=== PATIENT | female | born 1940 | race Caucasian/White ===

== ENCOUNTER 2017-02-03 11:50 | Outpatient (RCR) | payer MEDICARE, BC ==
[2016-10-03 08:17] VITALS: Ht 160 cm; Wt 106.6 kg
[~2017-02-03] VITALS: Ht 160 cm; Wt 106.6 kg
[~2017-02-03 11:50] MED LIST: ALBU8.5H IH; AMOX1TAB9 PO; APIX5TAB PO; ASPI81TA86 PO; ATEN-1 PO; ATOR-1 PO; ATOR20TA22 PO; ATOR40TA69 PO; BLOO-1318 MC; FELO5TAB34 PO; FLUT1DIS28 IH; INSU100I10 SC; INSU100I28 SQ; INSU100I30 SQ; LANI SUBQ; LATA2.5D7 OP; METF-410 PO; METF-420 PO; OLME40TA28 PO; OXYGENHOME INH; PIOG30TA3 PO; SULF-198 PO; TIMO1DRO8 OP; [UNRECOGNIZED DRUG - CODE] PO
--- NOTE | 2017-02-06 16:23 | Medical Nutrition Therapy ---
Nutrition Anthropometrics Height (Inches): 63.00 Weight (Pounds): 235 (stated wt) BMI Calculated: 41.62 Jose F Nutrition Score: Jose F Nutrition Risk Score: Dietary Referral Nutrition Risk Factors: Nutrition Risk Comment: Physical Findings Physical Appearance: Morbidly Obese 40+ Skin Appearance Skin Appearance: Edema Edema Location Modifier: Edema Location: Type of Edema: Degree of Edema: Gastrointestinal Symptoms GI Symtoms: Tube Present: Bowel Sounds: Recent Bowel Pattern: Stool Characteristics: Nutrition/Food History Breakfast: scrab egg, 1 sl toast , buttwer Lunch: sand chips, unswt tea Dinner: meat, rice or potatoes, peas, veg, SF applesauce Snacks: fruit Nutritional Education Nutrition Counseling: late entry for 02/03 : Pt states has receved diabetic education in the past. Reviewed gycemic response to CHO. Pt eats fruit between meals. enphasised that fruit is a high CHO food. Discussed CHO counting and plate method. Pt'd daugher does cooking and pt states daughter has gastic bypass so eats very little CHO. Recommend pt follow similar diet and limit CHO ot 30gm or 1c/meal. Encouraged wt loss to help with BG control. PCP ordered diabetic classes and CGM. Pt refused CGM at this time. Refused classes but will consider the Living with Diabetes class if it could be worked into her schedule. Nutrition Monitoring & Eval RD Patient Assessment Time: 60 minutes Nutritional Comment: Provided 60 minutes MNT for diabetes Copies To Copies to: SIRISHA PETER PA-C, BETH Feb 06, 2017 16:16
== END 2017-03-10 ==
LOC: DIET 11:50
PROVIDERS: ATTEND Physician Assistant
DX: Z71.3 Dietary counseling and surveillance (principal); E11.42 Type 2 diabetes mellitus with diabetic polyneuropathy; Z68.41 Body mass index [BMI] 40.0-44.9, adult; Z79.4 Long term (current) use of insulin
CPT/HCPCS: 97802

== ENCOUNTER 2017-03-13 13:19 | Outpatient (RCR) | payer MEDICARE, BC ==
[2016-10-03 08:17] VITALS: BMI 41.6
[~2017-03-13 13:19] MED LIST changes: +GLYB1TAB47 PO; -[UNRECOGNIZED DRUG - CODE] PO
--- NOTE | 2017-03-13 15:11 | Medical Nutrition Therapy ---
Nutrition Anthropometrics Height (Inches): 63.00 Weight (Pounds): 235 BMI Calculated: 41.62 Jose F Nutrition Score: Jose F Nutrition Risk Score: Dietary Referral Nutrition Risk Factors: Nutrition Risk Comment: Physical Findings Physical Appearance: Morbidly Obese 40+ Skin Appearance Skin Appearance: Edema Edema Location Modifier: Edema Location: Type of Edema: Degree of Edema: Gastrointestinal Symptoms GI Symtoms: Tube Present: Bowel Sounds: Recent Bowel Pattern: Stool Characteristics: Nutritional Education Nutrition Education Topic: Other Learning Barriers: Hx Of Non-Compliance Learning Readiness: Interested Teaching Methods: Discussion, Handout Response to Teaching: Verbalize understanding Teaching Recipient: Patient Nutrition Monitoring & Eval RD Patient Assessment Time: [address] Assessment Type: RD Education Nutritional Comment: Provided 60 minutes MNT for diabetes 03/13/17 Pt diagnosed with T2DM 20 years ago with recent A1c of 10.2%. Pt lives with daughter and her family. Pt instructed on Living with Diabetes topics including foot care, senior care complications, exercise, hypoglycemia, sick day care, etc. Pt appears interested in diabetes topics and able to answer questions regarding topics covered. I personally spent a total of 90 minutes educating/counseling patient regarding diabetes self-management in a group setting. See education section and my note above for details. Copies To Copies to: SIRISHA PETER PA-C, DIANNE Mar 13, 2017 15:11
== END 2017-04-17 ==
LOC: DIET 13:19
PROVIDERS: ATTEND Physician Assistant
DX: E11.42 Type 2 diabetes mellitus with diabetic polyneuropathy (principal); Z79.4 Long term (current) use of insulin; Z68.41 Body mass index [BMI] 40.0-44.9, adult
CPT/HCPCS: G0109

== ENCOUNTER → 2017-07-25 | Outpatient (CLI) | payer MEDICARE, BC ==
[2016-10-03 08:17] VITALS: BMI 41.6
[~2017-07-25] MED LIST changes: -METF-410 PO; +METF-411 PO; -METF-420 PO; +METF-421 PO
--- NOTE | 2017-07-25 13:33 | RADIOLOGY IMAGING REPORT ---
FACILITY: [facility] PATIENT NAME: Kristel Mclean : 1940 MR: [id number] V: [id number] EXAM DATE: ORDERING PHYSICIAN: SIRISHA PETER TECHNOLOGIST: Location: [facility] Patient: Kristel Mclean : 1940 Visit/Account:[id number] Date of Sevice: 07/25/2017 FINGER LEFT 3RD DIGIT COMPARISONS: None. ADDITIONAL PERTINENT HISTORY: Open wound FINDINGS: Osseous structures: . Negative, specifically no evidence of underlying fracture or osteolytic proces s. Joint spaces: Negative. Surrounding soft tissues: Negative. IMPRESSION: 1. No acute appearing bony abnormalities involving the visualized left toes. Report Dictated By: Mono Spangler MD at 07/25/2017 1:28 PM Report E-Signed By: Mono Spangler MD at 07/25/2017 1:29 PM WSN:[id number]
== END ==
LOC: RAD 10:58
PROVIDERS: ATTEND Physician Assistant
DX: S91.104D Unspecified open wound of right lesser toe(s) without damage to nail, subsequent encounter (principal)

== ENCOUNTER 2017-08-22 10:30 | Outpatient (RCR) | payer MEDICARE, BC ==
[2016-10-03 08:17] VITALS: BMI 41.6
--- NOTE | 2017-07-29 09:17 | PT INITIAL EVALUATION ---
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 The patient reports that she was seen by her DPM in January and given a metatarsal pad to improve toe alignment. Pt reports that she has been followed by her PCP since that time with weekly dressing changes from the RN. She was referred for PT wound care d/t delayed healing and increased depth of wound. She was started on Levofloxacin for a 7 day course. 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 Pt presents with neuropathic ulcer of the distal 3rd toe on the L) foot. There is large amounts of periwound callous with a small wound opening. PT completed conservative, selective debridement of non-viable tissue and periwound callous with tweezers and scissors to the depth of the subcutaneous tissue. Post debridement, the wound base was revealed with good healthy granulation tissue present. PT cleansed the area with sterile saline and then placed collagen with silver in the wound base, followed by a bordered gauze dressing. PT replaced the metatarsal pad and donned compression stockings and diabetic shoes. The patient will benefit from skilled PT wound care to include skilled sharps debridement as well as advanced wound care product selection and application to facilitate wound healing. Short Term Goals 1: Wound to demonstrate 100% granulation tissue with no s/s of infection 2: Wound to gradually epithelialize from the edges inward and demonstrate full closure 3: Pt to maintain clean, dry and intact dressing in between wound care sessions Patient's Goals: Wound healing PLAN: Patient to be seen for advanced PT wound care to include skilled sharps debridement as well as advanced wound care product selection and application 1- 2x/week for up to 90 days. Thank you for this referral. If you have any questions, comments, or concerns about this report or plan, please contact me at . April Vallejo, PT, DPT MTDD
--- NOTE | 2017-08-22 11:38 | PT PLAN OF CARE ---
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 GOALS: (all goals met) 1: Wound to demonstrate 100% granulation tissue with no s/s of infection 2: Wound to gradually epithelialize from the edges inward and demonstrate full closure 3: Pt to maintain clean, dry and intact dressing in between wound care sessions PATIENT'S GOAL: Wound Healing Status of Patient's Goals: Met Patient Compliance: Excellent Prognosis: Good Reasons for continuing therapy: None at this time. Wound demonstrates full closure with 100% epithelization of previous opening. The patient was encouraged to continue to treat the toe with vaseline to facilitate softening of the calloused tissue. Thank you for this referral. If you have any questions, comments, or concerns about this report or plan, please contact me at . April Vallejo, PT, DPT [facility]
== END 2017-08-22 18:00 | disposition home or self-care (01) ==
LOC: PT 10:30
PROVIDERS: ATTEND Physician Assistant
DX: E11.621 Type 2 diabetes mellitus with foot ulcer (principal); L97.521 Non-pressure chronic ulcer of other part of left foot limited to breakdown of skin; E11.42 Type 2 diabetes mellitus with diabetic polyneuropathy
CPT/HCPCS: 97161

== ENCOUNTER 2017-09-28 10:38 | Emergency (ER) | payer MEDICARE, BC ==
[2016-10-03 08:17] VITALS: Wt 79.8 kg
[~2017-09-28 10:38] MED LIST changes: -PIOG30TA3 PO; +PIOG30TA71 PO
--- NOTE | 2017-09-28 10:40 | ER Report ---
History and Physical Time Seen By MD: 10:40 HPI/ROS CHIEF COMPLAINT: Rash to foot HISTORY OF PRESENT ILLNESS: Patient is a 77-year-old female who presents to the emergency department with complaint of wound to the bottom of the left 3rd toe which has been chronic. She states that she developed a pressure sore in January 2017 she was followed for many weeks in the wound clinic 3 weeks ago was apparently her last visit and she told that she had healed. However she noticed breakdown of the skin again and now has red streaking going up the left lateral aspect of the lower extremity. She says that the area is warm to the touch and tender. She also reports subjective fevers at home. Patient is unclear of her last tetanus shot. She denies any chest pain or shortness of breath. She denies any abdominal pain. REVIEW OF SYSTEMS: Respiratory: No cough, no dyspnea. Cardiovascular: No chest pain, no palpitations. Gastrointestinal: No vomiting, no abdominal pain. Musculoskeletal: No back pain. Skin: Red rash to the lateral aspect of the left lower extremity Allergies: Coded Allergies: peanut (Verified Allergy, Severe, 09/28/17) throat closes fluconazole (Verified Allergy, Intermediate, 09/28/17) hives, burning, itching latex (Verified Allergy, Intermediate, 09/28/17) blisters cephalexin (Verified Allergy, Mild, 09/28/17) nausea lactose (Verified Adverse Reaction, Intermediate, GI DISTRESS, 09/28/17) Home Meds Active Scripts Olmesartan Medoxomil (BENICAR) 40 Mg Tablet, 1 TAB PO DAILY, #90 TAB 1 Refill Prov:BETY PIÑA MD 04/26/15 Oxygen (OXYGEN) Inha, 2 L INH QDAY, #2 L Prov:BETY PIÑA MD 04/24/15 Albuterol Sulfate 90 Mcg/Act (PROAIR HFA 90 MCG/ACT) 8.5 Gm Hfa.aer.ad, 2 PUFF IH Q4-6H, #9 INHALER 3 Refills Prov:BETY IPÑA MD 01/03/15 Felodipine (FELODIPINE ER) 5 Mg Tab.er.24h, 1 TAB PO DAILY, #90 TAB 3 Refills Prov:BETY PIÑA MD 11/09/14 Atenolol (ATENOLOL) 50 Mg Tablet, 1 TAB PO DAILY, #90 TAB 3 Refills Prov:BETY PIÑA MD 11/09/14 Reported Medications Levofloxacin 500 Mg Tab (LEVOFLOXACIN 500 MG TAB) 500 Mg Tablet, 500 MG PO QDAY , TAB 09/28/17 Metformin HCl (Metformin HCl ER) 1,000 Mg Inpccsf35h, BID 09/28/17 Atorvastatin Calcium (ATORVASTATIN CALCIUM) 80 Mg Tablet, 0.5 TAB PO QHS, TAB 10/03/16 Apixaban (ELIQUIS) 5 Mg Tablet, 5 MG PO BID 10/03/16 Insulin Lispro 100 Un/Ml Pen (HUMALOG 3 ML PEN) 100 Unit/1 Ml Insuln.pen, 15 UNIT SQ TIDAC, DIS.SYR 10/03/16 Insulin Glargine,Hum.rec.anlog (Basaglar Kwikpen U-100) 100 Unit/Ml (3 Ml) Insuln.pen, 42 SC QHS 10/03/16 Aspirin (ASPIRIN EC) 81 Mg Tablet.dr, 81 MG PO QDAY, TAB 10/02/16 Discontinued Scripts Amoxicillin/Potassium Clav (AMOX TR-K CLV 875-125 MG TAB) 1 Each Tablet, 875 MG PO BIDBS, #20 TAB 0 Refills Prov:DANYELLE HERNANDEZ MD 10/06/16 Past Medical/Surgical History Past medical history for insulin-dependent diabetes, history of asthma, history of mild stroke in the past. History of osteomyelitis into the right foot history of hypertension Hx Smoking: No Smoking Status: Never Smoker Exposure to Second Hand Smoke?: Yes Constitutional Vital Sign - Last 24 Hours 09/28/17 09/28/17 09/28/17 09/28/17 10:44 10:44 10:47 11:08 Temp 98.3 Pulse 71 67 Resp 20 B/P (MAP) 180/73 180/73 (108) Pulse Ox 96 96 O2 Delivery Nasal Cannula O2 Flow Rate 2.0 09/28/17 09/28/17 09/28/17 11:30 11:38 12:08 Pulse 67 64 Resp 19 12 B/P (MAP) 162/81 (108) Pulse Ox 96 96 Intake and Output 09/28/17 09/28/17 09/29/17 15:00 23:00 07:00 Intake Total 50 ml Balance 50 ml Physical Exam General Appearance: The patient is alert, has no immediate need for airway protection and no current signs of toxicity. Eyes: Pupils equal and round no injection. Respiratory: Chest is non tender, lungs are clear to auscultation. Cardiac: regular rate and rhythm Gastrointestinal: Abdomen is soft and non tender, no masses, bowel sounds normal. Musculoskeletal: Neck: Neck is supple and non tender. Extremities have full range of motion and are non tender. Skin: Evaluation of the left lower extremity reveals a small area of skin breakdown to the pad of the 3rd phalanx of the left foot there does not appear to be any purulent discharge and the skin breakdown appears to be only a grade 2 pressure sore. Patient does have erythema that is extending up the lateral aspect of the left lower extremity. It is warm to the touch and somewhat tender. Patient has intact dorsalis pedis pulses and posterior tibialis pulses to both lower extremities. [ ] Medical Decision Making Data Points Result Diagram: 09/28/17 1141 09/28/17 1141 Laboratory Hematology Test 09/28/17 11:41 Red Blood Count 4.71 M/uL (4.17-5.56) Mean Corpuscular Volume 89.1 fL (80.0-96.0) Mean Corpuscular Hemoglobin 30.4 pg (26.0-33.0) Mean Corpuscular Hemoglobin Concent 34.1 g/dL (32.0-36.0) Red Cell Distribution Width 13.9 % (11.5-14.5) Mean Platelet Volume 8.8 fL (7.2-11.1) Neutrophils (%) (Auto) 61.6 % (39.4-72.5) Lymphocytes (%) (Auto) 23.6 % (17.6-49.6) Monocytes (%) (Auto) 10.3 % (4.1-12.4) Eosinophils (%) (Auto) 3.3 % (0.4-6.7) Basophils (%) (Auto) 1.2 % (0.3-1.4) Nucleated RBC Relative Count (auto) 0.1 /100WBC Neutrophils # (Auto) 5.4 K/uL (2.0-7.4) Lymphocytes # (Auto) 2.1 K/uL (1.3-3.6) Monocytes # (Auto) 0.9 K/uL (0.3-1.0) Eosinophils # (Auto) 0.3 K/uL (0.0-0.5) Basophils # (Auto) 0.1 K/uL (0.0-0.1) Nucleated RBC Absolute Count (auto) 0.01 K/uL Erythrocyte Sedimentation Rate 31 mm/HOUR (0-30) Sodium Level 139 mmol/L (137-145) Potassium Level 5.2 mmol/L (3.5-5.0) Chloride Level 102 mmol/L (98-107) Carbon Dioxide Level 26 mmol/L (22-31) Blood Urea Nitrogen 23 mg/dl (7-18) Creatinine 0.90 mg/dl (0.52-1.04) Glomerular Filtration Rate Calc > 60.0 Random Glucose 141 mg/dl (75-110) Calcium Level 9.3 mg/dl (8.4-10.2) Total Bilirubin 0.5 mg/dl (0.2-1.3) Aspartate Amino Transf (AST/SGOT) 62 U/L (0-35) Alanine Aminotransferase (ALT/SGPT) 66 U/L (0-56) Alkaline Phosphatase 92 U/L (0-126) C-Reactive Protein 0.6 mg/dl (<1.0) Total Protein 7.7 g/dl (6.3-8.2) Albumin 4.2 g/dl (3.5-5.0) Chemistry Test 09/28/17 11:41 White Blood Count 8.8 k/uL (4.5-11.0) Red Blood Count 4.71 M/uL (4.17-5.56) Hemoglobin 14.3 g/dL (12.0-16.0) Hematocrit 41.9 % (34.0-47.0) Mean Corpuscular Volume 89.1 fL (80.0-96.0) Mean Corpuscular Hemoglobin 30.4 pg (26.0-33.0) Mean Corpuscular Hemoglobin Concent 34.1 g/dL (32.0-36.0) Red Cell Distribution Width 13.9 % (11.5-14.5) Platelet Count 262 K/uL (150-450) Mean Platelet Volume 8.8 fL (7.2-11.1) Neutrophils (%) (Auto) 61.6 % (39.4-72.5) Lymphocytes (%) (Auto) 23.6 % (17.6-49.6) Monocytes (%) (Auto) 10.3 % (4.1-12.4) Eosinophils (%) (Auto) 3.3 % (0.4-6.7) Basophils (%) (Auto) 1.2 % (0.3-1.4) Nucleated RBC Relative Count (auto) 0.1 /100WBC Neutrophils # (Auto) 5.4 K/uL (2.0-7.4) Lymphocytes # (Auto) 2.1 K/uL (1.3-3.6) Monocytes # (Auto) 0.9 K/uL (0.3-1.0) Eosinophils # (Auto) 0.3 K/uL (0.0-0.5) Basophils # (Auto) 0.1 K/uL (0.0-0.1) Nucleated RBC Absolute Count (auto) 0.01 K/uL Erythrocyte Sedimentation Rate 31 mm/HOUR (0-30) Glomerular Filtration Rate Calc > 60.0 Calcium Level 9.3 mg/dl (8.4-10.2) Total Bilirubin 0.5 mg/dl (0.2-1.3) Aspartate Amino Transf (AST/SGOT) 62 U/L (0-35) Alanine Aminotransferase (ALT/SGPT) 66 U/L (0-56) Alkaline Phosphatase 92 U/L (0-126) C-Reactive Protein 0.6 mg/dl (<1.0) Total Protein 7.7 g/dl (6.3-8.2) Albumin 4.2 g/dl (3.5-5.0) EKG/Imaging Imaging ED foot x-ray no obvious fractures or osteomyelitis noted. This is a wet read by myself it appears that the system which transmits x-rays to [facility] is not functioning. ED Course/Re-evaluation Clinical Indication for ER IV: IV Access ED Course 09/28/2017 11:15:38 am plan at this time will be to draw blood work for CBC comprehensive metabolic panel, blood cultures 2. We will obtain an x-ray of the left foot, update the patient's tetanus status and we will give a dose of IV clindamycin. Re-evaluation 09/28/2017 1:18:16 pm patient improved blood work appears unremarkable. Plan will be discharge home and I will have patient discontinue her current antibiotics and start her on oral clindamycin. She does have follow-up with [facility] tomorrow and will be encouraged to keep that appointment. Decision to Disposition Date: Sep 28, 2017 Decision to Disposition Time: 13:20 Depart Departure Latest Vital Signs Vital Signs Date Time Temp Pulse Resp B/P (MAP) Pulse Ox O2 Delivery O2 Flow Rate FiO2 09/28/17 12:08 64 12 96 09/28/17 11:30 162/81 (108) 09/28/17 10:44 2.0 09/28/17 10:44 98.3 Nasal Cannula Impression: Primary Impression: Cellulitis Condition: Improved Disposition: HOME OR SELF-CARE Referrals: SIRISHA PETER PA-C (PCP) New Scripts Clindamycin Hcl (CLINDAMYCIN HCL) 300 Mg Capsule 300 MG PO Q6H, #40 CAPSULE 0 Refills Prov: VU MCCLURE MD 09/28/17 Patient Instructions: Cellulitis (ED) Additional Instructions: Discontinue your current antibiotic and begin taking clindamycin as directed until course is complete. Be sure to follow up at [facility] tomorrow for evaluation of your foot wound. Problem Qualifiers Primary Impression: Cellulitis Site of cellulitis: extremity Site of cellulitis of extremity: lower extremity Laterality: left Qualified Codes: L03.116 - Cellulitis of left lower limb VU MCCLURE MD Sep 28, 2017 10:40
[2017-09-28] MEDS ORDERED: METF-54 (10:59)
[2017-09-28] MEDS ORDERED: LEVO500T83 PO (10:59)
[2017-09-28] MEDS ORDERED: DIPHTH/TETANUS/ACEL. PERTUSSIS IM ONLY ONE (11:20)
[2017-09-28] MEDS ORDERED: CLINDAMYCIN(*) 600 MG/NS 50 ML 50 ML IVPB ONE (11:20)
[2017-09-28 11:52] LABS: PLATELET COUNT, AUTOMATED 262 K/uL (150-450)
[2017-09-28 13:00] VITALS: BP 141/88
[2017-09-28] MEDS ORDERED: CLIN300C99 PO (13:20)
--- NOTE | 2017-09-28 15:18 | RADIOLOGY IMAGING REPORT ---
FACILITY: [facility] PATIENT NAME: Kristel Mclean : 1940 MR: [id number] V: [id number] EXAM DATE: ORDERING PHYSICIAN: VU MCCLURE TECHNOLOGIST: Location: [facility] - [place] Patient: Kristel Mclean : 1940 Visit/Account:[id number] Date of Sevice: 09/28/2017 INDICATION: r/o osteo. DATE: 09/28/2017 3:13 PM. TECHNIQUE: FOOT 3 VIEW LEFT COMPARISON: None FINDINGS: Marked hallux valgus with lateralization of the sesamoids. Diffusely decreased bone density . No conspicuous bony erosion. Old posttraumatic deformity of the fifth metatarsal. Mild midfoot dege nerative findings. Small plantar calcaneal heel spur. IMPRESSION: Chronic findings as above but no conspicuous erosion. Report Dictated By: Peña Wilburn MD at 09/28/2017 3:13 PM Report E-Signed By: Peña Wilburn MD at 09/28/2017 3:15 PM WSN:[id number]
== END 2017-09-28 13:29 | disposition home or self-care (01) ==
LOC: ER 10:47
DX: L03.116 Cellulitis of left lower limb (principal)
CPT/HCPCS: 36415; 85025; 85651; 86140; 87040; 90471; 90715; 96365; 99283; J3490; 82040; 82247; 82310; 82374; 82435; 82565; 82947; 84075; 84132; 84155; 84295; 84450; 84460; 84520

== ENCOUNTER → 2017-10-07 | Outpatient (CLI) | payer MEDICARE, BC ==
[2016-10-03 08:17] VITALS: BMI 41.6
[~2017-10-07] MED LIST changes: +CLIN300C99 PO; +LEVO500T83 PO; +METF-54
--- NOTE | 2017-10-07 17:17 | RADIOLOGY IMAGING REPORT ---
FACILITY: [facility] PATIENT NAME: Kristel Mclean : 1940 MR: [id number] V: [id number] EXAM DATE: ORDERING PHYSICIAN: CHUN DIAZ TECHNOLOGIST: [place] [facility] [place] Kristel Mclean : 1940 Visit/Account:[id number] Date of Sevice: 10/07/2017 CAROTID HISTORY: Coronary artery disease history of TIA COMPARISON: July 12, 2016 FINDINGS: Grayscale, duplex and color Doppler interrogation of the extracranial carotid and vertebral arteries was performed bilateral. On the right, peak systolic velocities within the common and internal carotid arteries are 193 and 72 cm/sec respectively. A small to moderate amount of plaque is identified in the distal right common carotid artery and a mild amount of plaque in the right carotid bulb. Antegrade flow within the comm on, internal and external carotid arteries as well as vertebral artery. ICA/CCA ratio 0.8. On the left, peak systolic velocities within the common and internal carotid arteries are 124 and 172 cm/sec respectively. Extensive amount of plaque is seen in the distal left common carotid artery ex tending into the carotid bulb and the proximal and mid left ICA. Antegrade flow within the common, i nternal and external carotid arteries as well as vertebral artery. ICA/CCA ratio 1.4. IMPRESSION: Small to moderate amount of plaque is identified in the distal right common carotid artery and a mild amount of plaque right carotid bulb although no hemodynamically significant lesions identified in th e right ICA by velocity criteria Extensive plaque is seen in the distal left common carotid artery extending into the left carotid bul b and proximal and mid left ICA. Elevated peak systolic velocity in the left ICA of one 72 cm/s and is consistent with a 50-69% category stenosis. Velocities slightly increased when compared the prior study at which time it measured 166 cm/s Velocity criteria are extrapolated from diameter data as defined by the Society of Radiologists in Ul trasound Consensus Conference Radiology 2003; 229;340-346 Report Dictated By: Marilyn Mayorga MD at 10/07/2017 5:10 PM Report E-Signed By: Marilyn Mayorga MD at 10/07/2017 5:14 PM WSN:[email or web address]
== END ==
LOC: US 02:00
PROVIDERS: ATTEND Internal Medicine Cardiovascular Disease
DX: I65.23 Occlusion and stenosis of bilateral carotid arteries (principal)
CPT/HCPCS: 93880

== ENCOUNTER → 2018-01-09 | Outpatient (CLI) | payer MEDICARE, BC ==
[2016-10-03 08:17] VITALS: BMI 41.6
[~2018-01-09] MED LIST changes: -METF-411 PO; -METF-421 PO; +METF-450 PO; +METF-452 PO
--- NOTE | 2018-01-09 12:53 | RADIOLOGY IMAGING REPORT ---
FACILITY: [facility] PATIENT NAME: GEORGINA LESLIE : [id number] MR: [id number] V: [id number] EXAM DATE: ORDERING PHYSICIAN: SIRISHA PETER TECHNOLOGIST: Elizabeth Moscoso PROCEDURE:BILATERAL DIGITAL SCREENING MAMMOGRAM WITH CAD ASSISTED INTERPRETATION & 3D TOMOSYNTHESIS COMPARISON:Prior mammograms 10/25/16. INDICATIONS:SCREENING FINDINGS: Breast parenchyma is predominantly fatty. There are no mammographic findings concerning for malignancy. No significant interval change. DIAGNOSTIC CATEGORY 1--NEGATIVE. RECOMMENDATIONS: ROUTINE MAMMOGRAM AND CLINICAL EVALUATION IN 1 YR. IMPRESSION: BIRADS 1: Negative. Dictated by: Arden Ashton on 01/09/2018 at 11:17 Transcribed by: KHARI on 01/09/2018 at 11:21 Approved by: Arden Ashton on 01/09/2018 at 12:52 [facility]
== END ==
LOC: RAD 01:11
PROVIDERS: ATTEND Physician Assistant
DX: Z12.31 Encounter for screening mammogram for malignant neoplasm of breast (principal)
CPT/HCPCS: 77063; 77067

== ENCOUNTER 2018-04-29 09:24 | Emergency (ER) | payer MEDICARE, BC ==
[2016-10-03 08:17] VITALS: Wt 79.8 kg
[2018-04-29 09:56] LABS: PLATELET COUNT, AUTOMATED 300 K/uL (150-450)
--- NOTE | 2018-04-29 09:58 | EKG ---
FACILITY: [facility] - [place] PATIENT NAME: GEORGINA LESLIE : [id number] MR: [id number] V: [id number] EXAM DATE: ORDERING PHYSICIAN: KATHYA IRAHTEA TECHNOLOGIST: Test Reason : Blood Pressure : / mmHG Vent. Rate : 067 BPM Atrial Rate : 067 BPM P-R Int : 212 ms QRS Dur : 082 ms QT Int : 404 ms P-R-T Axes : 046 021 066 degrees QTc Int : 426 ms Sinus rhythm with 1st degree AV block Otherwise normal ECG When compared with ECG of 02-OCT-2016 19:45, R wave progression has normalized, otherwise unchanged Confirmed by SAMIRA URRUTIA ([id number]) on 04/29/2018 4:36:47 PM Referred By: Confirmed By:SAMIRA URRUTIA
--- NOTE | 2018-04-29 10:01 | ER Report ---
History and Physical Time Seen By MD: 09:30 Hx. of Stated Complaint: RIGHT SIDED FACIAL NUMBNESS SINCE 829 TODAY HPI/ROS CHIEF COMPLAINT: Facial numbness HISTORY OF PRESENT ILLNESS: 77-year-old female male history of carotid artery stenosis and a prior TIA comes in with facial numbness happened about 45 minutes prior to presentation on arrival she is completely asymptomatic subsequent resolution complete and full of her symptoms patient is a long history of chronic right arm numbness S status post fall this is musculoskeletal in etiology. Patient has had carotid artery stenosis and diagnosed and had a procedure done. Patient states she's had this episode a couple times in the past has been formally diagnosed a TIA. On arrival to the emergency department again she is completely neurologically intact completely symptomatic resolution of all of her symptoms. Patient denies chest pain shortness of breath nausea vomiting diarrhea fever chills or additional complaints noted REVIEW OF SYSTEMS: Respiratory: No cough, no dyspnea. Cardiovascular: No chest pain, no palpitations. Gastrointestinal: No vomiting, no abdominal pain. Musculoskeletal: No back pain. Remainder of the 14 system rev: Yes Allergies: Coded Allergies: peanut (Verified Allergy, Severe, 09/28/17) throat closes fluconazole (Verified Allergy, Intermediate, 09/28/17) hives, burning, itching latex (Verified Allergy, Intermediate, 09/28/17) blisters cephalexin (Verified Allergy, Mild, 09/28/17) nausea lactose (Verified Adverse Reaction, Intermediate, GI DISTRESS, 09/28/17) Home Meds Active Scripts Clindamycin Hcl (CLINDAMYCIN HCL) 300 Mg Capsule, 300 MG PO Q6H, #40 CAPSULE 0 Refills Prov:VU MCCLURE MD 09/28/17 Olmesartan Medoxomil (BENICAR) 40 Mg Tablet, 1 TAB PO DAILY, #90 TAB 1 Refill Prov:BETY PIÑA MD 04/26/15 Oxygen (OXYGEN) Inha, 2 L INH QDAY, #2 L Prov:BETY PIÑA MD 04/24/15 Felodipine (FELODIPINE ER) 5 Mg Tab.er.24h, 1 TAB PO DAILY, #90 TAB 3 Refills Prov:BETY PIÑA MD 11/09/14 Atenolol (ATENOLOL) 50 Mg Tablet, 1 TAB PO DAILY, #90 TAB 3 Refills Prov:BETY PIÑA MD 11/09/14 Reported Medications Metformin HCl (Metformin HCl ER) 1,000 Mg [id number], BID 09/28/17 Atorvastatin Calcium (ATORVASTATIN CALCIUM) 80 Mg Tablet, 0.5 TAB PO QHS, TAB 10/03/16 Apixaban (ELIQUIS) 5 Mg Tablet, 5 MG PO BID 10/03/16 Insulin Lispro 100 Un/Ml Pen (HUMALOG 3 ML PEN) 100 Unit/1 Ml Insuln.pen, 15 UNIT SQ TIDAC, DIS.SYR 10/03/16 Insulin Glargine,Hum.rec.anlog (Basaglar Kwikpen U-100) 100 Unit/Ml (3 Ml) Insuln.pen, 42 SC QHS 10/03/16 Aspirin (ASPIRIN EC) 81 Mg Tablet.dr, 81 MG PO QDAY, TAB 10/02/16 Discontinued Reported Medications Levofloxacin 500 Mg Tab (LEVOFLOXACIN 500 MG TAB) 500 Mg Tablet, 500 MG PO QDAY, TAB 09/28/17 Discontinued Scripts Albuterol Sulfate 90 Mcg/Act (PROAIR HFA 90 MCG/ACT) 8.5 Gm Hfa.aer.ad, 2 PUFF IH Q4-6H, #9 INHALER 3 Refills Prov:BETY PIÑA MD 01/03/15 Reviewed Nurses Notes: Yes Old Medical Records Reviewed: Yes Hx Smoking: No Smoking Status: Never Smoker Exposure to Second Hand Smoke?: Yes Hx Substance Use Disorder: No Hx Alcohol Use: No Constitutional Vital Sign - Last 24 Hours 04/29/18 04/29/18 09:35 09:35 Temp 98.4 Pulse 75 Resp 20 B/P (MAP) 143/76 Pulse Ox 96 O2 Delivery Room Air O2 Flow Rate 2.0 Physical Exam General Appearance: The patient is alert, has no immediate need for airway protection and no current signs of toxicity. [ ] Eyes: Pupils equal and round no injection. Respiratory: Chest is non tender, lungs are clear to auscultation. Cardiac: regular rate and rhythm [ ] Gastrointestinal: Abdomen is soft and non tender, no masses, bowel sounds normal. Musculoskeletal: Neck: Neck is supple and non tender. Extremities have full range of motion and are non tender. Skin: No rashes or lesions. Neurological examination patient GCS of 15 cranial nerves II through XII intact without any deficits no obvious deficits noted neurovascularly intact and NIH scale negative DIFFERENTIAL DIAGNOSIS: After history and physical exam differential diagnosis was considered for TIA versus stroke versus intracranial bleed Medical Decision Making Data Points Result Diagram: 04/29/1849 04/29/18 0949 Laboratory Hematology Test 04/29/18 09:48 04/29/18 09:49 Whole Blood Glucose 138 mg/DL (75-110) Red Blood Count 5.01 M/uL (4.17-5.56) Mean Corpuscular Volume 90.6 fL (80.0-96.0) Mean Corpuscular Hemoglobin 29.6 pg (26.0-33.0) Mean Corpuscular Hemoglobin Concent 32.7 g/dL (32.0-36.0) Red Cell Distribution Width 14.1 % (11.5-14.5) Mean Platelet Volume 8.3 fL (7.2-11.1) Neutrophils (%) (Auto) 56.7 % (39.4-72.5) Lymphocytes (%) (Auto) 28.4 % (17.6-49.6) Monocytes (%) (Auto) 10.2 % (4.1-12.4) Eosinophils (%) (Auto) 4.5 % (0.4-6.7) Basophils (%) (Auto) 0.2 % (0.3-1.4) Nucleated RBC Relative Count (auto) 0.0 /100WBC Neutrophils # (Auto) 5.9 K/uL (2.0-7.4) Lymphocytes # (Auto) 2.9 K/uL (1.3-3.6) Monocytes # (Auto) 1.1 K/uL (0.3-1.0) Eosinophils # (Auto) 0.5 K/uL (0.0-0.5) Basophils # (Auto) 0.0 K/uL (0.0-0.1) Nucleated RBC Absolute Count (auto) 0.00 K/uL Prothrombin Time 13.9 seconds (12.0-14.4) Prothromb Time International Ratio 1.07 Activated Partial Thromboplast Time 35 seconds (23-35) Sodium Level 139 mmol/L (137-145) Potassium Level 4.4 mmol/L (3.5-5.0) Chloride Level 103 mmol/L (98-107) Carbon Dioxide Level 28 mmol/L (22-31) Blood Urea Nitrogen 19 mg/dl (7-18) Creatinine 0.80 mg/dl (0.52-1.04) Glomerular Filtration Rate Calc > 60.0 Random Glucose 130 mg/dl (75-110) Calcium Level 9.1 mg/dl (8.4-10.2) Total Bilirubin 0.6 mg/dl (0.2-1.3) Aspartate Amino Transf (AST/SGOT) 32 U/L (0-35) Alanine Aminotransferase (ALT/SGPT) 41 U/L (0-56) Alkaline Phosphatase 98 U/L (0-126) Troponin I < 0.012 ng/ml Total Protein 7.4 g/dl (6.3-8.2) Albumin 4.2 g/dl (3.5-5.0) Chemistry Test 04/29/18 09:48 04/29/18 09:49 Whole Blood Glucose 138 mg/DL (75-110) White Blood Count 10.4 k/uL (4.5-11.0) Red Blood Count 5.01 M/uL (4.17-5.56) Hemoglobin 14.8 g/dL (12.0-16.0) Hematocrit 45.4 % (34.0-47.0) Mean Corpuscular Volume 90.6 fL (80.0-96.0) Mean Corpuscular Hemoglobin 29.6 pg (26.0-33.0) Mean Corpuscular Hemoglobin Concent 32.7 g/dL (32.0-36.0) Red Cell Distribution Width 14.1 % (11.5-14.5) Platelet Count 300 K/uL (150-450) Mean Platelet Volume 8.3 fL (7.2-11.1) Neutrophils (%) (Auto) 56.7 % (39.4-72.5) Lymphocytes (%) (Auto) 28.4 % (17.6-49.6) Monocytes (%) (Auto) 10.2 % (4.1-12.4) Eosinophils (%) (Auto) 4.5 % (0.4-6.7) Basophils (%) (Auto) 0.2 % (0.3-1.4) Nucleated RBC Relative Count (auto) 0.0 /100WBC Neutrophils # (Auto) 5.9 K/uL (2.0-7.4) Lymphocytes # (Auto) 2.9 K/uL (1.3-3.6) Monocytes # (Auto) 1.1 K/uL (0.3-1.0) Eosinophils # (Auto) 0.5 K/uL (0.0-0.5) Basophils # (Auto) 0.0 K/uL (0.0-0.1) Nucleated RBC Absolute Count (auto) 0.00 K/uL Prothrombin Time 13.9 seconds (12.0-14.4) Prothromb Time International Ratio 1.07 Activated Partial Thromboplast Time 35 seconds (23-35) Glomerular Filtration Rate Calc > 60.0 Calcium Level 9.1 mg/dl (8.4-10.2) Total Bilirubin 0.6 mg/dl (0.2-1.3) Aspartate Amino Transf (AST/SGOT) 32 U/L (0-35) Alanine Aminotransferase (ALT/SGPT) 41 U/L (0-56) Alkaline Phosphatase 98 U/L (0-126) Troponin I < 0.012 ng/ml Total Protein 7.4 g/dl (6.3-8.2) Albumin 4.2 g/dl (3.5-5.0) Coagulation Test 04/29/18 09:49 Prothrombin Time 13.9 seconds Prothromb Time International Ratio 1.07 Activated Partial Thromboplast Time 35 seconds ED Course/Re-evaluation ED Course Equal course in 7-year-old female facial numbness which had subsequently completely resolved in less than 30 minutes and on arrival was completely asymptomatic no neurological deficits noted CT scan cardiac and stroke workup all negative she is asymptomatic diagnosis T8 primary care follow-up T Medications Decision to Disposition Date: Apr 29, 2018 Decision to Disposition Time: 11:05 Depart Departure Latest Vital Signs Vital Signs Date Time Temp Pulse Resp B/P (MAP) Pulse Ox O2 Delivery O2 Flow Rate FiO2 04/29/18 09:35 98.4 75 20 143/76 96 Room Air 04/29/18 09:35 2.0 Impression: Primary Impression: TIA (transient ischemic attack) Condition: Improved Disposition: HOME OR SELF-CARE Referrals: RY NUNEZ MD 5 Days Patient Instructions: Transient Ischemic Attack (DC) KATHYA IRAHETA MD Apr 29, 2018 10:00
[2018-04-29 10:05] LABS: INR 1.07
--- NOTE | 2018-04-29 10:23 | RADIOLOGY IMAGING REPORT ---
FACILITY: [facility] PATIENT NAME: Kristel Mclean : 1940 MR: [id number] V: [id number] EXAM DATE: ORDERING PHYSICIAN: KATHYA IRAHETA TECHNOLOGIST: Location: [facility] Patient: Kristel Mclean : 1940 Visit/Account:[id number] Date of Sevice: 04/29/2018 Study: Single portable view of the chest. Indication: Numbness Comparison study: October 02, 2016 Technique: Single AP view of the chest demonstrates no evidence of acute infiltrate. There is no evid ence of pleural effusion or pneumothorax. The mediastinal, cardiac, and diaphragmatic contours are un remarkable. IMPRESSION: Unremarkable chest. Report Dictated By: Josep Friedman at 04/29/2018 10:18 AM Report E-Signed By: Josep Friedman at 04/29/2018 10:19 AM [id number]
--- NOTE | 2018-04-29 10:46 | RADIOLOGY IMAGING REPORT ---
[place] [facility] [place]: Kristel Mclean : 1940 MR: [id number] V: [id number] EXAM DATE: ORDERING PHYSICIAN: KATHYA IRAHETA [place]CHN[place] [facility] [place]el [place] : 1940 Visit/Account:[id number] Date of Sevice: 04/29/2018 Study: CT scan of the brain without intravenous contrast. Indication: Dysesthesias Comparison study: July 12, 2016 Technique: Multiple axial images were obtained through the brain without the use of intravenous contr ast. One of the following dose optimization techniques was utilized in the performance of this exam: Autom ated exposure control; adjustment of the mA and/or kV according to the patient's size; or use of an i terative reconstruction technique. Specific details can be referenced in the facility's radiology C T exam operational policy. The examination demonstrates no evidence of acute intracranial hemorrhage. There is no evidence of ex tra-axial collection or hydrocephalus. There are patchy areas of low density within the periventricular white matter. This is consistent wi th chronic ischemia. There are areas of fluid density involving the anterior right centrum semiovale and the head of the right caudate nucleus. These are consistent with areas of chronic infarct. The se are unchanged as compared to the previous study. There is no evidence of disruption of the peripheral saenz-white junction. The bony structures are unremarkable. IMPRESSION: Chronic ischemic white matter changes. 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 There is no evidence of acute intracranial abnormality. Report Dictated By: Josep Friedman at 04/29/2018 10:36 AM Report E-Signed By: Josep Friedman at 04/29/2018 10:40 AM [id number]
[2018-04-29 11:00] VITALS: BP 99/71
== END 2018-04-29 11:17 | disposition home or self-care (01) ==
LOC: ER 09:39
DX: G45.9 Transient cerebral ischemic attack, unspecified (principal); I44.0 Atrioventricular block, first degree
CPT/HCPCS: 36416; 70450; 71045; 82040; 82247; 82310; 82374; 82435; 82565; 82947; 82948; 84075; 84132; 84155; 84295; 84450; 84460; 84484; 84520; 85025; 85610; 85730; 93005; 99284

== ENCOUNTER 2018-05-03 08:38 | Emergency (ER) | payer MEDICARE, BC ==
[2016-10-03 08:17] VITALS: Wt 99.3 kg
--- NOTE | 2018-05-03 08:41 | ER Report ---
History and Physical Time Seen By MD: 08:41 HPI/ROS CHIEF COMPLAINT: Right-sided facial numbness HISTORY OF PRESENT ILLNESS: Patient is a 77-year-old female here with complaints of right-sided facial numbness which she woke up with at approximately 7:00 this morning. Patient does have history significant for CVA and TIA. Patient was diagnosed with a TIA on April 29. Patient denies motor weakness at this time. Patient is hemodynamically stable in no acute distress. Patient is currently being treated with Elaquis. Patient denies fevers, chills, recent illness. REVIEW OF SYSTEMS: Constitutional: No fever, no chills. Eyes: No discharge. ENT: No sore throat. Cardiovascular: No chest pain, no palpitations. Respiratory: No cough, no shortness of breath. Gastrointestinal: No abdominal pain, no vomiting. Genitourinary: No hematuria. Musculoskeletal: No back pain. Skin: No rashes. Neurological: Right-sided facial numbness Allergies: Coded Allergies: peanut (Verified Allergy, Severe, 09/28/17) throat closes fluconazole (Verified Allergy, Intermediate, 09/28/17) hives, burning, itching latex (Verified Allergy, Intermediate, 09/28/17) blisters cephalexin (Verified Allergy, Mild, 09/28/17) nausea lactose (Verified Adverse Reaction, Intermediate, GI DISTRESS, 09/28/17) Home Meds Active Scripts Clindamycin Hcl (CLINDAMYCIN HCL) 300 Mg Capsule, 300 MG PO Q6H, #40 CAPSULE 0 Refills Prov:VU MCCLURE MD 09/28/17 Olmesartan Medoxomil (BENICAR) 40 Mg Tablet, 1 TAB PO DAILY, #90 TAB 1 Refill Prov:BETY PIÑA MD 04/26/15 Oxygen (OXYGEN) Inha, 2 L INH QDAY, #2 L Prov:BETY PIÑA MD 04/24/15 Felodipine (FELODIPINE ER) 5 Mg Tab.er.24h, 1 TAB PO DAILY, #90 TAB 3 Refills Prov:BETY PIÑA MD 11/09/14 Atenolol (ATENOLOL) 50 Mg Tablet, 1 TAB PO DAILY, #90 TAB 3 Refills Prov:BETY PIÑA MD 11/09/14 Reported Medications Metformin HCl (Metformin HCl ER) 1,000 Mg Mgymhet05b, BID 09/28/17 Atorvastatin Calcium (ATORVASTATIN CALCIUM) 80 Mg Tablet, 0.5 TAB PO QHS, TAB 10/03/16 Apixaban (ELIQUIS) 5 Mg Tablet, 5 MG PO BID 10/03/16 Insulin Lispro 100 Un/Ml Pen (HUMALOG 3 ML PEN) 100 Unit/1 Ml Insuln.pen, 15 UNIT SQ TIDAC, DIS.SYR 10/03/16 Insulin Glargine,Hum.rec.anlog (Basaglar Kwikpen U-100) 100 Unit/Ml (3 Ml) Insuln.pen, 42 SC QHS 10/03/16 Aspirin (ASPIRIN EC) 81 Mg Tablet.dr, 81 MG PO QDAY, TAB 10/02/16 Discontinued Reported Medications Levofloxacin 500 Mg Tab (LEVOFLOXACIN 500 MG TAB) 500 Mg Tablet, 500 MG PO QDAY, TAB 09/28/17 Discontinued Scripts Albuterol Sulfate 90 Mcg/Act (PROAIR HFA 90 MCG/ACT) 8.5 Gm Hfa.aer.ad, 2 PUFF IH Q4-6H, #9 INHALER 3 Refills Prov:BETY PIÑA MD 01/03/15 Hx Smoking: No Smoking Status: Never Smoker Exposure to Second Hand Smoke?: Yes Hx Substance Use Disorder: No Hx Alcohol Use: No Constitutional Vital Sign - Last 24 Hours 05/03/18 05/03/18 05/03/18 05/03/18 08:41 08:55 10:18 13:22 Temp 98.5 Pulse 66 85 Resp 16 16 16 B/P (MAP) 155/95 (115) 136/85 (102) Pulse Ox 92 95 92 O2 Delivery Nasal Cannula Nasal Cannula Nasal Cannula O2 Flow Rate 2.0 2 2 Physical Exam General Appearance: The patient is alert, has no immediate need for airway protection and no signs of toxicity. No acute distress Eyes: Pupils equal and round no pallor or injection. ENT, Mouth: Mucous membranes are moist. Respiratory: There are no retractions, lungs are clear to auscultation. Cardiovascular: Regular rate and rhythm. Gastrointestinal: Abdomen is soft and non tender, no masses, bowel sounds normal. Neurological: No focal neurological findings on examination, no weakness, no facial droop Skin: Warm and dry, no rashes. Musculoskeletal: Neck is supple non tender. Extremities are nontender, nonswollen and have full range of motion. DIFFERENTIAL DIAGNOSIS: After history and physical exam differential diagnosis was considered for CVA, TIA, electrolyte abnormality, infectious etiology, anxiety Medical Decision Making Data Points Result Diagram: 05/03/18 1028 05/03/18 1028 Laboratory Hematology Test 05/03/18 10:28 05/03/18 10:40 05/03/18 12:35 Red Blood Count 5.08 M/uL (4.17-5.56) Mean Corpuscular Volume 91.1 fL (80.0-96.0) Mean Corpuscular Hemoglobin 30.0 pg (26.0-33.0) Mean Corpuscular Hemoglobin Concent 32.9 g/dL (32.0-36.0) Red Cell Distribution Width 13.7 % (11.5-14.5) Mean Platelet Volume 8.4 fL (7.2-11.1) Neutrophils (%) (Auto) 67.7 % (39.4-72.5) Lymphocytes (%) (Auto) 19.9 % (17.6-49.6) Monocytes (%) (Auto) 9.7 % (4.1-12.4) Eosinophils (%) (Auto) 1.9 % (0.4-6.7) Basophils (%) (Auto) 0.8 % (0.3-1.4) Nucleated RBC Relative Count (auto) 0.0 /100WBC Neutrophils # (Auto) 6.4 K/uL (2.0-7.4) Lymphocytes # (Auto) 1.9 K/uL (1.3-3.6) Monocytes # (Auto) 0.9 K/uL (0.3-1.0) Eosinophils # (Auto) 0.2 K/uL (0.0-0.5) Basophils # (Auto) 0.1 K/uL (0.0-0.1) Nucleated RBC Absolute Count (auto) 0.00 K/uL Prothrombin Time 13.4 seconds (12.0-14.4) Prothromb Time International Ratio 1.02 Activated Partial Thromboplast Time 34 seconds (23-35) Sodium Level 139 mmol/L (137-145) Potassium Level 4.9 mmol/L (3.5-5.0) Chloride Level 104 mmol/L (98-107) Carbon Dioxide Level 27 mmol/L (22-31) Blood Urea Nitrogen 18 mg/dl (7-18) Creatinine 0.70 mg/dl (0.52-1.04) Glomerular Filtration Rate Calc > 60.0 Random Glucose 104 mg/dl (75-110) Calcium Level 9.4 mg/dl (8.4-10.2) Total Bilirubin 0.7 mg/dl (0.2-1.3) Aspartate Amino Transf (AST/SGOT) 33 U/L (0-35) Alanine Aminotransferase (ALT/SGPT) 37 U/L (0-56) Alkaline Phosphatase 102 U/L (0-126) Total Protein 7.6 g/dl (6.3-8.2) Albumin 4.3 g/dl (3.5-5.0) Urine Color Straw Urine Clarity Clear Urine pH 6.0 pH (4.8-9.5) Urine Specific [place] 1.005 Urine Protein Negative mg/dL (NEGATIVE) Urine Glucose (UA) Negative mg/dL (NEGATIVE) Urine Ketones Negative mg/dL (NEGATIVE) Urine Blood Negative (NEGATIVE) Urine Nitrite Negative (NEGATIVE) Urine Bilirubin Negative (NEGATIVE) Urine Urobilinogen Negative mg/dL (0.2-1.9) Urine Leukocyte Esterase Negative (NEGATIVE) Urine RBC <1 /HPF (0-2/HPF) Urine WBC None /HPF (0-5/HPF) Urine Squamous Epithelial Cells Many /LPF (</=FEW) Urine Bacteria Negative /HPF (NONE-FEW) Urine Mucus None /HPF (NONE-FEW) Troponin I < 0.012 ng/ml Chemistry Test 05/03/18 10:28 05/03/18 10:40 05/03/18 12:35 White Blood Count 9.4 k/uL (4.5-11.0) Red Blood Count 5.08 M/uL (4.17-5.56) Hemoglobin 15.2 g/dL (12.0-16.0) Hematocrit 46.3 % (34.0-47.0) Mean Corpuscular Volume 91.1 fL (80.0-96.0) Mean Corpuscular Hemoglobin 30.0 pg (26.0-33.0) Mean Corpuscular Hemoglobin Concent 32.9 g/dL (32.0-36.0) Red Cell Distribution Width 13.7 % (11.5-14.5) Platelet Count 282 K/uL (150-450) Mean Platelet Volume 8.4 fL (7.2-11.1) Neutrophils (%) (Auto) 67.7 % (39.4-72.5) Lymphocytes (%) (Auto) 19.9 % (17.6-49.6) Monocytes (%) (Auto) 9.7 % (4.1-12.4) Eosinophils (%) (Auto) 1.9 % (0.4-6.7) Basophils (%) (Auto) 0.8 % (0.3-1.4) Nucleated RBC Relative Count (auto) 0.0 /100WBC Neutrophils # (Auto) 6.4 K/uL (2.0-7.4) Lymphocytes # (Auto) 1.9 K/uL (1.3-3.6) Monocytes # (Auto) 0.9 K/uL (0.3-1.0) Eosinophils # (Auto) 0.2 K/uL (0.0-0.5) Basophils # (Auto) 0.1 K/uL (0.0-0.1) Nucleated RBC Absolute Count (auto) 0.00 K/uL Prothrombin Time 13.4 seconds (12.0-14.4) Prothromb Time International Ratio 1.02 Activated Partial Thromboplast Time 34 seconds (23-35) Glomerular Filtration Rate Calc > 60.0 Calcium Level 9.4 mg/dl (8.4-10.2) Total Bilirubin 0.7 mg/dl (0.2-1.3) Aspartate Amino Transf (AST/SGOT) 33 U/L (0-35) Alanine Aminotransferase (ALT/SGPT) 37 U/L (0-56) Alkaline Phosphatase 102 U/L (0-126) Total Protein 7.6 g/dl (6.3-8.2) Albumin 4.3 g/dl (3.5-5.0) Urine Color Straw Urine Clarity Clear Urine pH 6.0 pH (4.8-9.5) Urine Specific [place] 1.005 Urine Protein Negative mg/dL (NEGATIVE) Urine Glucose (UA) Negative mg/dL (NEGATIVE) Urine Ketones Negative mg/dL (NEGATIVE) Urine Blood Negative (NEGATIVE) Urine Nitrite Negative (NEGATIVE) Urine Bilirubin Negative (NEGATIVE) Urine Urobilinogen Negative mg/dL (0.2-1.9) Urine Leukocyte Esterase Negative (NEGATIVE) Urine RBC <1 /HPF (0-2/HPF) Urine WBC None /HPF (0-5/HPF) Urine Squamous Epithelial Cells Many /LPF (</=FEW) Urine Bacteria Negative /HPF (NONE-FEW) Urine Mucus None /HPF (NONE-FEW) Troponin I < 0.012 ng/ml Coagulation Test 05/03/18 10:28 Prothrombin Time 13.4 seconds Prothromb Time International Ratio 1.02 Activated Partial Thromboplast Time 34 seconds Urinalysis Test 05/03/18 10:40 Urine Color Straw Urine Clarity Clear Urine pH 6.0 pH (4.8-9.5) Urine Specific [place] 1.005 Urine Protein Negative mg/dL (NEGATIVE) Urine Glucose (UA) Negative mg/dL (NEGATIVE) Urine Ketones Negative mg/dL (NEGATIVE) Urine Blood Negative (NEGATIVE) Urine Nitrite Negative (NEGATIVE) Urine Bilirubin Negative (NEGATIVE) Urine Urobilinogen Negative mg/dL (0.2-1.9) Urine Leukocyte Esterase Negative (NEGATIVE) Urine RBC <1 /HPF (0-2/HPF) Urine WBC None /HPF (0-5/HPF) Urine Squamous Epithelial Cells Many /LPF (</=FEW) Urine Bacteria Negative /HPF (NONE-FEW) Urine Mucus None /HPF (NONE-FEW) EKG/Imaging Imaging PATIENT NAME: Kristel Mclean : 1940 MR: [id number] V: [id number] EXAM DATE: ORDERING PHYSICIAN: INGA RICH TECHNOLOGIST: Location: [facility] [place] Patient: Kristel Mclean : 1940 Visit/Account:[id number] Date of Sevice: 05/03/2018 EXAMINATION: MRI Brain without intravenous contrast HISTORY: Balance problems. COMPARISON: Noncontrast head CT from same date. TECHNIQUE: Multi-planar, multi-sequence brain MRI was performed without IV contrast administration. FINDINGS: Brain volume: Normal. Sagittal midline structures: Negative. Ventricles: Negative. Acute ischemic changes: None. Hemorrhage: None. Masses / edema: None. Ellis-white: Negative. White matter: Moderate chronic small vessel ischemic changes. 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 Vessels: Negative. Extra-axial: Negative. Calvarium / scalp: Negative. Skull base: Negative. Visualized sinuses / orbits: Mild to moderate mucosal thickening in the maxillary sinuses, ethmoid air cells, and left sphenoid sinus. Rightward nasal septal deviation. Visualized upper neck: Negative. IMPRESSION: No acute intracranial abnormality. Location: [facility] [place] Patient: Kristel Mclean : 1940 Visit/Account:[id number] Date of Sevice: 05/03/2018 EXAMINATION: CT Head without intravenous contrast HISTORY: Stroke. TECHNIQUE: Axial images were obtained from the skull base to the vertex without intravenous contrast. Sagittal and coronal reformatted images are also submitted. One of the following dose optimization techniques was utilized in the performance of this exam: Automated exposure control; adjustment of the mA and/or kV according to the patient's size; or use of an iterative reconstruction technique. Specific details can be referenced in the facility's radiology CT exam operational policy. COMPARISON: None available. FINDINGS: Brain volume: Normal. Ventricles: Negative. Acute ischemic changes: None. Hemorrhage: None. Masses / edema: None. Ellis-white: Negative. White matter: Moderate chronic microvascular ischemic changes. 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 Vessels: Negative. Extra-axial: Negative. Calvarium / skull base: Negative. Visualized sinuses / orbits: Mild to moderate mucosal thickening in the maxillary sinuses, ethmoid air cells, and left sphenoid sinus. Rightward nasal septal deviation. IMPRESSION: No acute intracranial abnormality. ED Course/Re-evaluation ED Course Patient is a 77-year-old female here with complaints of facial paresthesias starting this morning. Patient's physical examination was concerning for a possible CVA, initial CT of the head was completed to rule out intracranial bleed which is negative. MRI showed no acute findings of ischemic process. Labs are unremarkable. Initial troponin was indeterminate so a repeat was completed and was negative. Recommended close PCP follow-up. Return precautions provided. Decision to Disposition Date: May 03, 2018 Decision to Disposition Time: 13:08 Depart Departure Latest Vital Signs Vital Signs Date Time Temp Pulse Resp B/P (MAP) Pulse Ox O2 Delivery O2 Flow Rate FiO2 05/03/18 13:22 85 16 136/85 (102) 92 Nasal Cannula 2 05/03/18 10:18 98.5 Impression: Primary Impression: Numbness and tingling Condition: Improved Disposition: HOME OR SELF-CARE Referrals: RY NUNEZ MD (PCP) Patient Instructions: Paresthesia (ED) Additional Instructions: Please follow-up in the next 24-48 hours with your family doctor. Your MRI and CT scan showed no signs of stroke today. Please return immediately if you develop recurrent symptoms, fevers, visual changes, weakness. INGA RICH DO May 03, 2018 08:41
[2018-05-03] MEDS ORDERED: NS(*) 0.9% 50 ML BAG 0 ML ONE (08:59)
[2018-05-03] MEDS ORDERED: IOPAMIDOL 76% 75 ML INFUS BTL 0 ML ONE (08:59)
--- NOTE | 2018-05-03 09:28 | RADIOLOGY IMAGING REPORT ---
[place] [facility] [place] NAME: Kristel Mclean : 1940 MR: [id number] V: [id number] EXAM DATE: ORDERING PHYSICIAN: INGA RICH TECHNOLOGIST: [place] [facility] [place]: Kristel Mclean : 1940 Visit/Account:[id number] Date of Sevice: 05/03/2018 EXAMINATION: CT Head without intravenous contrast HISTORY: Stroke. TECHNIQUE: Axial images were obtained from the skull base to the vertex without intravenous contrast . Sagittal and coronal reformatted images are also submitted. One of the following dose optimization techniques was utilized in the performance of this exam: Autom ated exposure control; adjustment of the mA and/or kV according to the patient's size; or use of an i terative reconstruction technique. Specific details can be referenced in the facility's radiology C T exam operational policy. COMPARISON: None available. FINDINGS: Brain volume: Normal. Ventricles: Negative. Acute ischemic changes: None. Hemorrhage: None. Masses / edema: None. Ellis-white: Negative. White matter: Moderate chronic microvascular ischemic changes. 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 Vessels: Negative. Extra-axial: Negative. Calvarium / skull base: Negative. Visualized sinuses / orbits: Mild to moderate mucosal thickening in the maxillary sinuses, ethmoid a ir cells, and left sphenoid sinus. Rightward nasal septal deviation. IMPRESSION: No acute intracranial abnormality. Report Dictated By: Blaine Burr MD at 05/03/2018 9:19 AM Report E-Signed By: Blaine Burr MD at 05/03/2018 9:25 AM WSN:[id number]
--- NOTE | 2018-05-03 10:30 | RADIOLOGY IMAGING REPORT ---
FACILITY: [facility] - [place] PATIENT NAME: Kristel Mclean : 1940 MR: [id number] V: [id number] EXAM DATE: ORDERING PHYSICIAN: INGA RICH TECHNOLOGIST: Location: [facility] Patient: Kristel Mclean : 1940 Visit/Account:[id number] Date of Sevice: 05/03/2018 EXAMINATION: MRI Brain without intravenous contrast HISTORY: Balance problems. COMPARISON: Noncontrast head CT from same date. TECHNIQUE: Multi-planar, multi-sequence brain MRI was performed without IV contrast administration. FINDINGS: Brain volume: Normal. Sagittal midline structures: Negative. Ventricles: Negative. Acute ischemic changes: None. Hemorrhage: None. Masses / edema: None. Ellis-white: Negative. White matter: Moderate chronic small vessel ischemic changes. 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 Vessels: Negative. Extra-axial: Negative. Calvarium / scalp: Negative. Skull base: Negative. Visualized sinuses / orbits: Mild to moderate mucosal thickening in the maxillary sinuses, ethmoid a ir cells, and left sphenoid sinus. Rightward nasal septal deviation. Visualized upper neck: Negative. IMPRESSION: No acute intracranial abnormality. Report Dictated By: Blaine Burr MD at 05/03/2018 10:24 AM Report E-Signed By: Blaine Burr MD at 05/03/2018 10:27 AM WSN:[id number]
[2018-05-03 10:37] LABS: PLATELET COUNT, AUTOMATED 282 K/uL (150-450)
[2018-05-03 10:47] LABS: INR 1.02
--- NOTE | 2018-05-03 11:00 | EKG ---
FACILITY: [facility] PATIENT NAME: GEORGINA LESLIE : [id number] MR: [id number] V: [id number] EXAM DATE: ORDERING PHYSICIAN: INGA RICH TECHNOLOGIST: MARITZA Negron Reason : CVA Blood Pressure : / mmHG Vent. Rate : 063 BPM Atrial Rate : 063 BPM P-R Int : 210 ms QRS Dur : 078 ms QT Int : 416 ms P-R-T Axes : 040 -03 056 degrees QTc Int : 425 ms Sinus rhythm with 1st degree AV block Inferior infarct , age undetermined Abnormal ECG When compared with ECG of 29-APR-2018 09:43, No significant change was found Confirmed by Darian Cormier ([id number]) on 05/03/2018 2:35:52 PM Referred By: LAYLA Confirmed By:Darian Trejo
[2018-05-03 13:22] VITALS: BP 136/85
== END 2018-05-03 13:22 | disposition home or self-care (01) ==
LOC: ER 08:57
DX: R20.0 Anesthesia of skin (principal); R20.2 Paresthesia of skin; Z86.73 Personal history of transient ischemic attack (TIA), and cerebral infarction without residual deficits
CPT/HCPCS: 36415; 70450; 70551; 81001; 82040; 82247; 82310; 82374; 82435; 82565; 82947; 84075; 84132; 84155; 84295; 84450; 84460; 84484; 84520; 85025; 85610; 85730; 93005; 99284; J7050; Q9967

== ENCOUNTER → 2018-10-30 | Outpatient (CLI) | payer MEDICARE, BC ==
[2016-10-03 08:17] VITALS: BMI 41.6
--- NOTE | 2018-10-30 16:53 | RADIOLOGY IMAGING REPORT ---
[place] [facility] [place] Kristel Mclean : 1940 MR: [id number] V: [id number] EXAM DATE: ORDERING PHYSICIAN: BETY PIÑA TECHNOLOGIST: Location: [facility] - [place] Patient: Kristel Mclean : 1940 Visit/Account:[id number] Date of Sevice: 10/30/2018 CAROTID HISTORY: Follow-up 4 50-69% stenosis on the left COMPARISON: 10/07/2017 FINDINGS: Grayscale, duplex and color Doppler interrogation of the extracranial carotid and vertebral arteries was performed bilateral. On the right, peak systolic velocities within the common and internal carotid arteries are 94 and 67 cm/sec respectively. Mild plaque formation is noted within the common carotid artery. Doppler wavefo otilia are within normal limits.. Antegrade flow within the common, internal and external carotid arter ies as well as vertebral artery. ICA/CCA ratio 0.7. On the left, peak systolic velocities within the common and internal carotid arteries are 114 and 99 cm/sec respectively. There is moderate diffuse atherosclerotic plaque present throughout the common carotid and internal carotid arterial system. Doppler waveforms however are within normal limits.. A ntegrade flow within the common, internal and external carotid arteries as well as vertebral artery. ICA/CCA ratio 0.9. IMPRESSION: Compared to prior study, velocities on the left are not significantly elevated. Findings are consiste nt with less than 50% stenosis. No hemodynamically significant stenosis identified on the right. Velocity criteria are extrapolated from diameter data as defined by the Society of Radiologists in [facility] Consensus Conference Radiology 2003; 229;340-346 Report Dictated By: Manuel Florez at 10/30/2018 4:29 PM Report E-Signed By: Manuel Florez at 10/30/2018 4:44 PM WSN:[id number]
== END ==
LOC: US 02:20
PROVIDERS: ATTEND Emergency Medicine
DX: I65.22 Occlusion and stenosis of left carotid artery (principal)
CPT/HCPCS: 93880